=== PATIENT | female | born 1985 | race Caucasian/White ===

== ENCOUNTER 2016-10-02 07:11 | Emergency (ER) | payer BC, OTHER ==
[2016-10-02] MEDS ORDERED: HYDROmorphone* 1 MG/ML 1 ML SYR IV ONE ×2 (07:32→08:30)
[2016-10-02] MEDS ORDERED: Ondansetron INJ* 2 MG/ML VIAL IV ONE (07:32)
[2016-10-02] MEDS ORDERED: Ketorolac INJ* 30 MG/ML 1 ML VIAL IV ONE (07:32)
[2016-10-02] MEDS ORDERED: NS 0.9% 1000 ML* 1,000 ML IV ONE ×2 (07:32→08:30)
[2016-10-02 07:41] LABS: Hematocrit 40 % (35-47); Mean Corpuscular HGB Conc 33 g/dl (31-36); Mean Corpuscular Hemoglobin 32 pg (27-31); Mean Corpuscular Volume 97 fL (80-97); Mean Platelet Volume 9 um3 (7.4-10.4); Red Blood Count 4.06 10^6/ul (4.0-5.4); Red Cell Distribution Width 13 % (10.5-15); White Blood Count 9.2 10^3/ul (3.5-10.8)
[2016-10-02 07:56] LABS: ALT 10 U/L (7-52); AST 14 U/L (13-39); Albumin 4.3 g/dL (3.2-5.2); Alkaline Phosphatase 41 U/L (34-104); Anion Gap 9 mmol/L (2-11); BUN/Creatinine Ratio 18.3 (8-20); Blood Urea Nitrogen 13 mg/dL (6-24); C Reactive Protein < 1.00 mg/L (< 5.00); CO2 Carbon Dioxide 23 mmol/L (22-32); Calcium 9.3 mg/dL (8.6-10.3); Chloride 105 mmol/L (101-111); EGFR African American 124.3 (>60); EGFR Non-African American 96.7 (>60); Globulin 2.7 g/dL (2-4); Glucose 153 mg/dL (70-100); Lipase 17 U/L (11.0-82.0); Potassium 3.6 mmol/L (3.5-5.0); Sodium 137 mmol/L (133-145)
[2016-10-02] MEDS ORDERED: HYDROmorphone* 1 MG/ML 1 ML SYR ONE (08:32)
--- NOTE | 2016-10-02 08:45 | RAD ---
INDICATION: Right flank abdominal pain. COMPARISON: There are no prior studies available for comparison. TECHNIQUE: Multiple real-time images of the right kidney were obtained. FINDINGS: The right kidney is normal in size shape and echogenicity. The kidney measured 11.6 x 4.6 x 4.7 cm. No significant focal renal abnormality is seen. There is mild dilatation of the calyces and renal pelvis and proximal ureter consistent with mild hydronephrosis. There is a normal left ureteral jet. No right ureteral jet is seen. IMPRESSION: MILD RIGHT HYDRONEPHROSIS AND ABSENCE OF THE RIGHT URETERAL JET SUSPICIOUS FOR A URETERAL OBSTRUCTION CONSIDER CT IMAGING WITHOUT CONTRAST FOR FURTHER CHARACTERIZATION.
--- NOTE | 2016-10-02 09:15 | RAD ---
INDICATION: Right flank abdominal pain. COMPARISON: Correlation is made with a prior renal ultrasound of the same day. TECHNIQUE: A CT scan of the abdomen and pelvis was performed without intravenous or oral contrast. Contiguous axial sections were obtained from the lung bases through the symphysis pubis. Images were reconstructed in the coronal and sagittal planes. FINDINGS: The lung bases are clear. No pleural effusion is present. The liver and spleen are within normal limits in size without significant focal abnormality on this noncontrast study. No calcified gallstones are seen. The pancreas appears to be within normal limits in size. The adrenal glands appear to be within normal limits. The right kidney is mildly enlarged. There are multiple small bilateral renal calculi measuring up to 1-2 mm in size. There is dilatation of the right renal calyces, pelvis and ureter to the level of a 3 mm calculus at the right ureterovesical junction. This is causing moderate right hydronephrosis. There is also mild stranding adjacent to the proximal right ureter. The aorta is normal in caliber without significant calcific plaque. No significant enlarged retroperitoneal lymph nodes are seen. The stomach, small and large bowel appear nondistended. The appendix is not visualized. There is no evidence for diverticulitis or colitis. The uterus is anteverted and normal in size. There is a small amount of free intraperitoneal fluid present dependently in the posterior pelvis. No free intraperitoneal air is seen.. There is a mild lumbar scoliosis convex toward the left side. No significant focal osseous abnormality is seen. IMPRESSION: THERE IS A 3 MM CALCULUS AT THE RIGHT URETEROVESICAL JUNCTION CAUSING MODERATE HYDRONEPHROSIS. THERE ARE MULTIPLE ADDITIONAL SMALL BILATERAL RENAL CALCULI.
[2016-10-02 12:28] LABS: Urine Bacteria Absent (Absent); Urine Bilirubin Negative (Negative); Urine Glucose Negative (Negative); Urine Nitrite Negative (Negative)
[2016-10-02 13:36] VITALS: BP 117/69
--- NOTE | 2016-10-03 09:11 | ED ---
José Bland Benjamin, scribed for Jan Pascual MD on 10/02/16 at 0750 . Abdominal Pain/Female - HPI Summary HPI Summary: 31yo female c/o sudden onset severe cramping RLQ and Rt flank pain this morning. Pain doesn't change with position but has worsened with road bumps during her car ride here. Pt is undergoing fertility treatment currently. LMP was 1 week ago. Hx includes CABG for a congenital heart defect. - History of Current Complaint Chief Complaint: EDAbdPain Stated Complaint: LOWER RT ABD PAIN Time Seen by Provider: 10/02/16 07:20 Hx Obtained From: Patient, Family/Group Fitness Instructor - ?: No Onset/Duration: Sudden Onset, Still Present Timing: Constant Severity Initially: Severe Severity Currently: Severe Pain Intensity: 9 Pain Scale Used: 0-10 Numeric Location: Discrete At: RLQ, Flank - right Radiates: No Character: Cramping Aggravating Factor(s): Other: - road bumps Alleviating Factor(s): Nothing Associated Signs and Symptoms: Positive: Negative Allergies/Adverse Reactions: Allergies Allergy/AdvReac Type Severity Reaction Status Date / Time No Known Allergies Allergy Verified 10/02/16 07:35 PMH/Surg Hx/FS Hx/Imm Hx Cardiovascular History: Reports: Other Cardiovascular Problems/Disorders - congenital heart defect Infectious Disease History: No Infectious Disease History: Denies: Traveled Outside the [place] in Last 30 Days - Family History Known Family History: Positive: Cardiac Disease - Social History Occupation: Employed Full-time Lives: With Family Alcohol Use: Rare Hx Substance Use: No Hx Tobacco Use: No Review of Systems Positive: Skin Diaphoresis Eyes: Negative ENT: Negative Cardiovascular: Negative Respiratory: Negative Positive: Abdominal Pain - RLQ Genitourinary: Negative Musculoskeletal: Negative Skin: Negative Neurological: Negative Psychological: Normal All Other Systems Reviewed And Are Negative: Yes Physical Exam Triage Information Reviewed: Yes Vital Signs On Initial Exam: Initial Vitals Temp Pulse Resp BP Pulse Ox 99.6 F 59 20 116/60 100 10/02/16 07:13 10/02/16 07:13 10/02/16 07:13 10/02/16 07:13 10/02/16 07:13 Vital Signs Reviewed: Yes Appearance: Positive: Well-Nourished, Pain Distress - moderate Skin: Positive: Warm, Diaphoretic, Pale Head/Face: Positive: Normal Head/Face Inspection Eyes: Positive: Normal ENT: Positive: Normal ENT inspection Neck: Positive: Supple, Nontender Respiratory/Lung Sounds: Positive: Clear to Auscultation, Breath Sounds Present Cardiovascular: Positive: RRR Abdomen Description: Positive: Soft, CVA Tenderness (R) Bowel Sounds: Positive: Present Musculoskeletal: Positive: Normal Neurological: Positive: Normal Psychiatric: Positive: Affect/Mood Appropriate Diagnostics - Vital Signs Vital Signs Temp Pulse Resp BP Pulse Ox 10/02/16 07:16 99.6 F 56 20 116/60 100 10/02/16 07:13 99.6 F 59 20 116/60 100 - Laboratory Lab Results: Lab Results 10/02/16 10/02/16 10/02/16 Range/Units 07:29 07:29 07:29 WBC 9.2 (3.5-10.8) 10^3/ul RBC 4.06 (4.0-5.4) 10^6/ul Hgb 13.0 (12.0-16.0) g/dl Hct 40 (35-47) % MCV 97 (80-97) fL MCH 32 H (27-31) pg MCHC 33 (31-36) g/dl RDW 13 (10.5-15) % Plt Count 275 (150-450) 10^3/ul MPV 9 (7.4-10.4) um3 Neut % (Auto) 47.9 (38-83) % Lymph % (Auto) 36.3 (25-47) % Wilson % (Auto) 9.2 H (1-9) % Eos % (Auto) 6.5 H (0-6) % Baso % (Auto) 0.1 (0-2) % Absolute Neuts (auto) 4.4 (1.5-7.7) 10^3/ul Absolute Lymphs (auto) 3.3 (1.0-4.8) 10^3/ul Absolute Monos (auto) 0.8 (0-0.8) 10^3/ul Absolute Eos (auto) 0.6 (0-0.6) 10^3/ul Absolute Basos (auto) 0 (0-0.2) 10^3/ul Absolute Nucleated RBC 0.01 10^3/ul Nucleated RBC % 0.1 Sodium 137 (133-145) mmol/L Potassium 3.6 (3.5-5.0) mmol/L Chloride 105 (101-111) mmol/L Carbon Dioxide 23 (22-32) mmol/L Anion Gap 9 (2-11) mmol/L BUN 13 (6-24) mg/dL Creatinine 0.71 (0.51-0.95) mg/dL Est GFR ( Amer) 124.3 (>60) Est GFR (Non-Af Amer) 96.7 (>60) BUN/Creatinine Ratio 18.3 (8-20) Glucose 153 H (70-100) mg/dL Lactic Acid 2.8 H* (0.5-2.0) mmol/L Calcium 9.3 (8.6-10.3) mg/dL Total Bilirubin 0.70 (0.2-1.0) mg/dL AST 14 (13-39) U/L ALT 10 (7-52) U/L Alkaline Phosphatase 41 (34-104) U/L C-Reactive Protein < 1.00 (< 5.00) mg/L Total Protein 7.0 (6.4-8.9) g/dL Albumin 4.3 (3.2-5.2) g/dL Globulin 2.7 (2-4) g/dL Albumin/Globulin Ratio 1.6 (1-3) Lipase 17 (11.0-82.0) U/L Beta HCG, Quant < 0.60 mIU/mL Urine Color Urine Appearance Urine pH (5-9) Ur Specific [place] (1.010-1.030) Urine Protein (Negative) Urine Ketones (Negative) Urine Blood (Negative) Urine Nitrate (Negative) Urine Bilirubin (Negative) Urine Urobilinogen (Negative) Ur Leukocyte Esterase (Negative) Urine WBC (Auto) (Absent) Urine RBC (Auto) (Absent) Ur Squamous Epith Cells (Absent) Urine Bacteria (Absent) Urine Glucose (Negative) 10/02/16 Range/Units 12:03 WBC (3.5-10.8) 10^3/ul RBC (4.0-5.4) 10^6/ul Hgb (12.0-16.0) g/dl Hct (35-47) % MCV (80-97) fL MCH (27-31) pg MCHC (31-36) g/dl RDW (10.5-15) % Plt Count (150-450) 10^3/ul MPV (7.4-10.4) um3 Neut % (Auto) (38-83) % Lymph % (Auto) (25-47) % Wilson % (Auto) (1-9) % Eos % (Auto) (0-6) % Baso % (Auto) (0-2) % Absolute Neuts (auto) (1.5-7.7) 10^3/ul Absolute Lymphs (auto) (1.0-4.8) 10^3/ul Absolute Monos (auto) (0-0.8) 10^3/ul Absolute Eos (auto) (0-0.6) 10^3/ul Absolute Basos (auto) (0-0.2) 10^3/ul Absolute Nucleated RBC 10^3/ul Nucleated RBC % Sodium (133-145) mmol/L Potassium (3.5-5.0) mmol/L Chloride (101-111) mmol/L Carbon Dioxide (22-32) mmol/L Anion Gap (2-11) mmol/L BUN (6-24) mg/dL Creatinine (0.51-0.95) mg/dL Est GFR ( Amer) (>60) Est GFR (Non-Af Amer) (>60) BUN/Creatinine Ratio (8-20) Glucose (70-100) mg/dL Lactic Acid (0.5-2.0) mmol/L Calcium (8.6-10.3) mg/dL Total Bilirubin (0.2-1.0) mg/dL AST (13-39) U/L ALT (7-52) U/L Alkaline Phosphatase (34-104) U/L C-Reactive Protein (< 5.00) mg/L Total Protein (6.4-8.9) g/dL Albumin (3.2-5.2) g/dL Globulin (2-4) g/dL Albumin/Globulin Ratio (1-3) Lipase (11.0-82.0) U/L Beta HCG, Quant mIU/mL Urine Color Yellow Urine Appearance Cloudy Urine pH 5.0 (5-9) Ur Specific [place] 1.014 (1.010-1.030) Urine Protein Negative (Negative) Urine Ketones Negative (Negative) Urine Blood 3+ H (Negative) Urine Nitrate Negative (Negative) Urine Bilirubin Negative (Negative) Urine Urobilinogen Negative (Negative) Ur Leukocyte Esterase Negative (Negative) Urine WBC (Auto) 1+(6-10/hpf) H (Absent) Urine RBC (Auto) 3+(>10/hpf) H (Absent) Ur Squamous Epith Cells Present H (Absent) Urine Bacteria Absent (Absent) Urine Glucose Negative (Negative) Result Diagrams: 10/02/16 07:29 10/02/16 07:29 Lab Statement: Any lab studies that have been ordered have been reviewed, and results considered in the medical decision making process. - CT CT Abd/Pelv WO CT Interpretation: Positive (See Comments) - IMPRESSION: THERE IS A 3 MM CALCULUS AT THE RIGHT URETEROVESICAL JUNCTION CAUSING MODERATE HYDRONEPHROSIS. THERE ARE MULTIPLE ADDITIONAL SMALL BILATERAL RENAL CALCULI. CT Interpretation Completed By: Radiologist - Ultrasound No standard instances Ultrasound Interpretation: Positive (See Comments) - US RENAL LIMITED RIGHT IMPRESSION: MILD RIGHT HYDRONEPHROSIS AND ABSENCE OF THE RIGHT URETERAL JET SUSPICIOUS FOR A URETERAL OBSTRUCTION CONSIDER CT IMAGING WITHOUT CONTRAST FOR FURTHER Ultrasound Interpretation Completed By: Radiologist Re-Evaluation - Re-Evaluation First Eval Re-Evaluation Time: 08:22 Change: Improved Comment: still in pain, but much better now. Abdomen still soft and nontender. Second Eval Re-Evaluation Time: 12:38 Comment: review lab and imaging results with the pt, discussed disposition. Abdominal Pain Fem Course/Dx - Course Course Of Treatment: Ms. Davila presented with the sudden onset of right flank pain and was found to have a 3mm reight UVJ stone with a negative urine. She will be treated accordingly and D/C'd. - Diagnoses Provider Diagnoses: Kidney stone on right side Discharge - Discharge Plan Condition: Stable Disposition: HOME Prescriptions: HYDROcodone/ACETAMIN 5-325 MG* [[place] 5-325 TAB*] 1 tab PO Q6H PRN #20 tab MDD 4 PRN Reason: Pain Tamsulosin CAP* [Flomax CAP*] 0.4 mg PO DAILY #7 cap Patient Education Materials: Ibuprofen (By mouth), Kidney Stones (ED) Referrals: Roberto Mclaughlin MD [Medical Doctor] - Hannah Sheets NP [Primary Care Provider] - The documentation as recorded by the scribe, Winston Kumar accurately reflects the service I personally performed and the decisions made by me, Jan Pascual MD.
== END 2016-10-02 13:00 | disposition home or self-care (01) ==
LOC: ED 07:11
DX: N13.2 Hydronephrosis with renal and ureteral calculous obstruction (principal); Z32.02 Encounter for pregnancy test, result negative; Z95.1 Presence of aortocoronary bypass graft
CPT/HCPCS: 36415; 74176; 76775; 80053; 81003; 81015; 83605; 83690; 84702; 85025; 86140; 87040; 96361; 96374; 96375; 96376; 99283; J1170; J1885; J2405